=== PATIENT | male | born 1980 | race Caucasian/White ===

== ENCOUNTER 2017-03-07 21:22 | Emergency (ER) | payer OTHER ==
[2017-03-08] VITALS: BP 125/78
== END 2017-03-08 | disposition home or self-care (01) ==
LOC: ED 21:22
DX: M79.622 Pain in left upper arm (principal); M79.621 Pain in right upper arm

== ENCOUNTER 2018-10-06 22:37 | Emergency (ER) | payer OTHER ==
[~2018-10-06] VITALS: Ht 170.2 cm; Wt 73.9 kg
[2018-10-06 23:03] VITALS: Ht 170.2 cm; Wt 73.9 kg
[2018-10-07] VITALS: BP 120/82
== END 2018-10-07 | disposition home or self-care (01) ==
LOC: ED 22:37
DX: J34.89 Other specified disorders of nose and nasal sinuses (principal)

== ENCOUNTER 2018-11-12 14:18 | Emergency (ER) | payer OTHER ==
[~2018-11-12] VITALS: Ht 172.7 cm; Wt 73.9 kg
[2018-11-12 14:24] VITALS: Ht 172.7 cm; Wt 73.9 kg
[2018-11-12 15:59] VITALS: BP 133/79
== END 2018-11-12 15:59 | disposition home or self-care (01) ==
LOC: ED 14:18
DX: M75.52 Bursitis of left shoulder (principal); M54.12 Radiculopathy, cervical region; R55 Syncope and collapse
CPT/HCPCS: 82962; J1885